=== PATIENT | male | born 1995 | race Two or more races ===

== ENCOUNTER 2018-04-06 22:42 | Emergency (ER) | payer MEDICAID ==
[~2018-04-06] VITALS: Ht 167.6 cm; Wt 74.8 kg
[2018-04-06 23:08] VITALS: BP 143/82
[2018-04-07] MEDS ORDERED: MEPERIDINE HCL (50 MG/ML) 1 ML VIAL IM ONE (00:15)
[2018-04-07] MEDS ORDERED: ONDANSETRON HCL 4 MG/2 ML VIAL IM ONE (00:15)
== END 2018-04-07 01:17 | disposition home or self-care (01) ==
LOC: ER 22:46
DX: S82.841A Displaced bimalleolar fracture of right lower leg, initial encounter for closed fracture (principal); W39.XXXA Discharge of firework, initial encounter; W18.39XA Other fall on same level, initial encounter; Y93.89 Activity, other specified; Y99.8 Other external cause status; Y92.89 Other specified places as the place of occurrence of the external cause
CPT/HCPCS: 29515; 73610; 96372; 99284; J2175; J2405